=== PATIENT | male | born 1960 | race Caucasian/White ===

== ENCOUNTER 2018-03-24 07:56 | Day surgery (SDC) | payer MEDICAID ==
[~2018-03-24] VITALS: Ht 170.2 cm; Wt 110.9 kg
[2018-03-24] MEDS ORDERED: SODIUM CHLORIDE 0.9% 1,000 ML IV ONE ×2 (08:00→08:01)
[2018-03-24] MEDS ORDERED: FentaNYL CITRATE-PF 100 MCG/2 ML VIAL ONE (09:09)
[2018-03-24] MEDS ORDERED: MIDAZOLAM HCL 5 MG/ML VIAL ONE (09:09)
[2018-03-24] MEDS ORDERED: NALOXONE HCL 1 MG/ML 2 ML SYG IVP PRN (09:45)
[2018-03-24] MEDS ORDERED: RANI150T7 PO (10:30)
== END 2018-03-24 10:55 | disposition home or self-care (01) ==
LOC: SURGERY 07:56
PROVIDERS: ATTEND Internal Medicine Gastroenterology
DX: K63.5 Polyp of colon (principal); K64.8 Other hemorrhoids; K57.30 Diverticulosis of large intestine without perforation or abscess without bleeding; K21.9 Gastro-esophageal reflux disease without esophagitis; M19.90 Unspecified osteoarthritis, unspecified site; E78.00 Pure hypercholesterolemia, unspecified; E78.5 Hyperlipidemia, unspecified; Z79.1 Long term (current) use of non-steroidal anti-inflammatories (NSAID); Z80.0 Family history of malignant neoplasm of digestive organs; Z98.890 Other specified postprocedural states; Z79.899 Other long term (current) drug therapy
CPT/HCPCS: 45380; 88305; C1769; J2250; J3010; J7030

== ENCOUNTER 2022-11-02 15:11 | Emergency (ER) | payer MEDICAID ==
[~2022-11-02] VITALS: Ht 170.2 cm; Wt 79.5 kg
[~2022-11-02 15:11] MED LIST: RANI150T7 PO
[2022-11-02 17:41] LABS: COVID AG,FIA SOURCE NASOPHARYNGEAL
[2022-11-02 17:43] LABS: BASOPHILS % (AUTO) 0.6 % (0.0-2.0); HEMATOCRIT 35.2 % (41-53); HEMOGLOBIN 11.4 g/dL (13.5-17.5); LYMPHOCYTES % (AUTO) 18.4 % (22.0-44.0); MEAN CORPUSCULAR HEMOGLOBIN 26.8 pg (26.0-34.0); MEAN CORPUSCULAR HGB CONC 32.5 G/dL (31.0-37.0); MEAN CORPUSCULAR VOLUME 83 fL (80-100); MONOCYTES # (AUTO) 0.5 K/uL (0.1-1.0); MONOCYTES % (AUTO) 8.5 % (2.0-9.0); NEUTROPHILS # (AUTO) 3.7 K/uL (1.8-7.7); NEUTROPHILS % (AUTO) 69.5 % (40.0-70.0); PLATELET COUNT (AUTO) 283 K/uL (150-450); RED BLOOD CELL COUNT(AUTO) 4.26 MIL/uL (4.50-5.90); RED CELL DISTRIBUTION WIDTH 16.1 % (11.5-14.5)
[2022-11-02 18:01] LABS: INFLUENZA TYPE A NEGATIVE FOR TYPE A (NEGATIVE); INFLUENZA TYPE B NEGATIVE FOR TYPE B (NEGATIVE)
[2022-11-02 18:01] LABS: B-TYPE NATRIURETIC PEPTIDE 6 pg/mL (0-100)
[2022-11-02 18:11] LABS: ANION GAP 4 mmol/L (8-16); CARBON DIOXIDE 31 mmol/L (22-29); CHLORIDE 97 mmol/L (98-107); CREATININE 0.81 mg/dL (0.60-1.30); GLOMERULAR FILTR. RATE CALC > 60 mL/min (>60); GLUCOSE,RANDOM 109 mg/dL (70-110); POTASSIUM 4.2 mmol/L (3.5-5.1); SODIUM SERUM 132 mmol/L (136-145); UREA NITROGEN, BLOOD 8 mg/dL (7-18)
[2022-11-02 18:36] LABS: ALANINE AMINOTRANSFERASE 58 U/L (12-78); ALBUMIN 3.4 g/dL (3.4-5.0); ALKALINE PHOSPHATASE 87 U/L (46-116); ASPARTATE AMINOTRANSFERASE 32 U/L (15-37); BILIRUBIN,TOTAL 0.2 mg/dL (0.1-1.0); CREATINE KINASE, TOTAL ONLY 119 U/L (39-308); TOTAL PROTEIN, SERUM 7.3 g/dL (6.4-8.2)
[2022-11-02] MEDS ORDERED: SODIUM CHLORIDE 0.9% 100 ML ONE (18:57)
[2022-11-02] MEDS ORDERED: IOHEXOL 350 MG/ML 100 ML VIAL ONE (18:57)
[2022-11-02 22:40] VITALS: BP 121/57
== END 2022-11-02 23:40 | disposition home or self-care (01) ==
LOC: EMS 15:50
DX: R06.00 Dyspnea, unspecified (principal); Z20.822 Contact with and (suspected) exposure to COVID-19
CPT/HCPCS: 99285; 71275; 71045; 87426; 80053; 82550; 83880; 84484; 85025; 85379; 87804; 36415; 93005; Q9967; J7050